=== PATIENT | male | born 1955 | race Caucasian/White ===

== ENCOUNTER 2025-09-02 20:32 | Observation (INO) ==
[2025-09-02] MEDS: KETOROLAC TROMETHAMINE 15 MG/ML VIAL IV STA (21:12)
[2025-09-02] MEDS: SODIUM CHLORIDE 0.9% 1,000 ML IV STA (21:12)
--- NOTE | 2025-09-02 21:20 | Emergency Department Note ---
ED Visit Note I was consulted by the Advanced Practice Provider, KARIME Becker. I performed a substantive portion of the visit. This includes aspects of: History: Patient is a 70-year-old male presenting with left sided abdominal pain. Patient reports he developed pain in his left lower quadrant that wraps around into his left flank and left low back starting 4 days ago. Denies any nausea, vomiting or diarrhea. He does report poor oral intake. MDM: Laboratory workup in the emergency department showed slight leukocytosis (WBC 10.94) with neutrophil predominant; stable electrolyte; ZOILA (Cr 1.66); normal lipase; normal AST/ALT. UA negative for infection, but noted to have significant amounts of blood. CT abdomen/pelvis with IV contrast showed mild to moderate left-sided hydronephrosis and hydroureter due to a 6 mm calculus at the left UVJ. Patient given IV Toradol, Zofran and fluids. Notable ZOILA and 6 mm stone, so will discuss case with hospitalist service for admission. .
[2025-09-02 21:32] LABS: Hematocrit (blood only) 49.4 % (42.0-52.0); Hemoglobin 17.0 g/dL (14.0-18.0); Immature Granulocytes # (auto) 0.02 K/uL (0.01-0.20); Immature Granulocytes % (auto) 0.2 %; Mean Corpuscular Hemoglobin 31.1 pg (25.0-34.0); Mean Corpuscular Volume 90.5 fL (80.0-100.0); Platelet Count 221 K/uL (130-400); RDW Standard Deviation 39.8 fL (36.4-46.3); Red Blood Count 5.46 M/uL (4.70-6.10); White Blood Count 10.94 K/ul (4.8-10.8)
[2025-09-02 21:39] LABS: Alanine Aminotransferase 30.0 U/L (7-52); Albumin Globulin Ratio 1.2 (0.9-2); Albumin Level 4.1 gm/dl (3.4-5.0); Alkaline Phosphatase 83.0 U/L (34-104); Anion Gap 9.0 (3-11); Bilirubin,Total 0.8 mg/dl (0.2-1.0); Blood Urea Nitrogen 26.0 mg/dl (6-23); Calcium 9.1 mg/dl (8.6-10.3); Carbon Dioxide 29.0 mmol/L (21-32); Chloride 102.0 mmol/L (98-107); Creatinine Clr Calc Pharmacy 47.6 ml/min; Globulin 3.5 gm/dl (2.5-4.0); Glucose 116.0 mg/dl (70-99(Fasting)); Lipase 24.0 U/L (11-82); Potassium 4.2 mmol/L (3.5-5.1); Sodium 140.0 mmol/L (136-145); Total Protein 7.6 gm/dl (6.0-8.3)
[2025-09-02 21:42] LABS: Appearance Urine Clear (Clear); Bacteria Urine Automated None Seen (None Seen); Epithelial Cell Urine Auto 0-2 /hpf (0-2); Glucose Urine UA Negative (Negative); RBC Urine Automated >20 /hpf (0-2)
[2025-09-02] MEDS: ONDANSETRON INJ 2 MG/ML 2 ML VIAL IV STA (21:44)
[2025-09-02] MEDS: OPTIRAY 320 100ml IV ONE (21:50)
--- NOTE | 2025-09-02 22:30 | Emergency Department Note ---
Impression & Plan ZOILA (acute kidney injury), Calculus of ureterovesical junction (UVJ), Hydronephrosis ED Provider Note CHIEF COMPLAINT: Left sided pain HISTORY OF PRESENTING ILLNESS: Patient is a 7-year-old male who presents to the emergency department today for complaints of left-sided abdominal pain. He reports pain at the left lower quadrant that wraps around to the lumbar and flank area of the back. Reports an onset of 4 days ago without any improvement in the pain or discomfort. He denies any nausea, vomiting, diarrhea. He does report a poor appetite over the past 4 days. He did have a prostate biopsy done 2 weeks ago but feels he did recover from this procedure well. Does report urinary complaints such as urgency, frequency but denies burning on urination. He denies any numbness or tingling, lightheadedness, dizziness, syncope, falls, trauma, injury, blurred vision. Patient denies chest pain, sob, breathing difficulties, abdominal pain, headache, fevers/chills, hematuria. REVIEW OF SYSTEMS: See HPI for pertinent positives and pertinent negatives. ALLERGIES: See below MEDICATIONS: See below PAST MEDICAL HISTORY: See below PHYSICAL EXAM: VITALS: Vitals are noted on the nurse's note and reviewed by myself. GENERAL: Non toxic, in no acute distress, non-diaphoretic. SKIN: Capillary refill <2 sec. EYES: PERRLA. EOMI. Conjunctivae without injection, sclerae without icterus. MOUTH: Mucous membranes moist. Uvula midline. Airway patent. NECK: Supple without nuchal rigidity. HEART: Regular rate and rhythm without murmurs gallops or rubs. LUNGS: Clear to auscultation bilaterally without wheezes, rales or rhonchi. No retractions or accessory muscle use. ABDOMEN: Positive bowel sounds x 4. Normal tympanic percussion. Soft, nontender to palpation. No masses or hepatosplenomegaly. Mahajan sign negative. Left-sided CVA tenderness. No guarding, rigidity, or rebound tenderness. No focal RLQ or LLQ tenderness. MUSCULOSKELETAL: Range of motion intact. No gross musculoskeletal defects. NEURO: Sensation intact. Patient was alert and oriented. No focal neurological deficits. DIFFERENTIAL DIAGNOSIS: Differential diagnosis includes appendicitis, diverticulitis, constipation, gastroenteritis, bowel obstruction, cholecystitis, appendicitis, inflammatory bowel disease, renal colic, PUD, biliary pathology, pancreatitis, mesenteric ischemia, aortic pathology, infection, genitourinary, UTI, perforated viscus, among others. ED COURSE AND MEDICAL DECISION MAKING: HISTORY FROM INDEPENDENT HISTORIAN: History was provided by the patient and who is at bedside and secondary historian. MONITOR: Continuous electronic device monitor: Order was placed for continuous electronic device monitor. Patient was placed on the electronic device monitor and continuous pulse ox. Patient was noted to be in normal sinus rhythm at an initial rate of 66 bpm per my interpretation. INTERPRETATION OF LABS: I interpreted the labs with full lab results as below in the lab section of this note. Laboratory results pertinent to the emergent complaint are discussed in the MDM section below. The patient was advised to follow up with their PCP and/or specialist(s) for further outpatient monitoring and management of any abnormal results. INTERPRETATION OF IMAGING: Imaging studies were interpreted by myself and read by radiology as per the imaging section of this note. The patient was advised to follow up with their PCP and/or specialist(s) for further outpatient management of any non-emergent abnormal findings. CHRONIC MEDICAL/SOCIAL CONDITIONS AFFECTING CARE: No social concerns were identified as barriers to patients care. EXTERNAL RECORDS REVIEWED: Primary care visit from 06/09/2025 related to low back pain. ESCALATION OF CARE CONSIDERED: I considered admission on this patient due to ZOILA and hydronephrosis due to renal calculi. CONSULTATIONS: I had a meaningful discussion about this patient with Dr. Espinoza who agrees with my assessment and the treatment plan. SUMMARY: I examined the patient for complaints of left lower quadrant pain that radiates to the lumbar and flank region. A physical exam and history were performed. Nursing notes, EMR, and medication list were personally reviewed. Abdominal exam without peritoneal signs. No evidence of acute abdomen at this time. Patient is well-appearing and hemodynamically stable. Given workup low suspicion for acute intra-abdominal process. CT of the abdomen and pelvis showed mild to moderate left sided hydronephrosis and hydroureter down to a 6 mm calculus at the left UVJ. CBC showed a mild leukocytosis with a white blood cell count of 10.94. No anemia or thrombocytopenia. CMP did show a creatinine of 1.66 and a BUN of 26. No other emergent findings on CMP. Lipase was 24. Urinalysis did show an elevated specific gravity, urine protein, urine ketones, +3 urine blood, white blood cells, hyaline cast. Patient was given 1 L of normal saline, Toradol 10 mg, Zofran 4 mg with improvement in pain and nausea. With the patient's ZOILA and CT findings I feel the patient will benefit from admission to the hospital. Patient accepted by Dr. Brandon. DIAGNOSIS: ZOILA, calculus UVJ, hydronephrosis TREATMENT PLAN/DISCHARGE INSTRUCTIONS: Admit to hospitalist services. The chart was completed utilizing [employer] Speech voice recognition software.Grammatical errors, random word insertions, pronoun errors, and incomplete sentences are an occasional consequence of this system due to software limitations, ambient noise, and hardware issues.Any formal questions or concerns about the content, text, or information contained within the body of this dictation should be directly addressed to the physician for clarification. 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 Ongoing surveillance with MRI Hypertension Hyperlipidemia Prediabetes GERD with esophagitis Medical History Elevated PSA Skin cancer Tinnitus, bilateral Sensorineural hearing loss of combined types, bilateral Cataract Barretts esophagus HX "pre-bryant's" - LAST YR CHECKED AND "NO EVIDENCE OF" Mitral valve prolapse Surgical History Hx of resection of meningioma (~2017) Followed by Dr. Amin [facility] [place], [place] History of left cataract surgery History of cataract surgery RT History of eye surgery RIGHT, RETINA 2019 History of endoscopy MULTIPLE History of craniotomy 2018 to remove benign mengioma. follows with Dr Amin ([facility] brain and spine) History of colonoscopy 05/25 repeat 5 yrs History of esophagogastroduodenoscopy (EGD) 04/2020 Family History Father Prostate cancer Myocardial infarction Mother Crohn's disease Other No family history of adverse response to anesthesia Denies family history of Ovarian cancer Breast cancer Colorectal cancer Social History Smoking Status: Former smoker Tobacco Type: Pipe and Cigars Age Started Using Tobacco: 20; Cigarettes Per Day: smoked in 20s; Second Hand Exposure: Yes; Do You Dip or Chew Tobacco: No; Tobacco Cessation Education Requested by Patient: No Hx Alcohol Use: Yes Alcohol type: wine and hard liquor Alcohol Intake Frequency: 4 or More x per/Week Hx Substance Use: No Preferred Language: Uzbek Communication Ability: Effective Visual Impairment: Limited Hearing Ability: Use of Hearing Aid Clinical Nursing Intern Required: No Beliefs That Will Affect Care: None marital status: Current Living Situation: Spouse current occupational status: retired How many Children do You have: 3 How many Children do You have Comment: 2 girl 1 boy Other Information That Helps Us Care for You: No Feels Safe at Home: Yes Safety Concerns: Feels Safe At This Time Childhood Exposure to Second-Hand Smoke: No Diet: regular caffeine: Yes (coffee in morning ) during the past year weight has: remained stable Dental Care, Regularly: Yes Physical Activity Frequency: 3-4 Times per Week Physical Activity Frequency Comment: 60,000-70,000 steps a week Seatbelt Use: always Sunscreen Use: Yes (sometimes) Assistive Devices: Glasses Allergies Allergies Allergy/AdvReac Type Severity Reaction Status Date / Time bee venom protein (honey bee) Allergy Unknown "WENT Verified 06/13/25 09:50 BLIND TEMPORARILY" No Known Drug Allergies Allergy Verified 06/13/25 09:50 seasonal allergies Allergy Uncoded 06/13/25 09:50 Home Meds Home Medications Medication Instructions Recorded Confirmed sildenafil 100 mg tablet 100 mg PO UD PRN sexual activity 10/30/20 09/03/25 Previous Rx's Medication Instructions Recorded lisinopril 40 mg tablet 40 mg PO HS #90 tabs 03/24/25 baclofen 10 mg tablet 10 mg PO TID PRN muscle spasm #30 06/09/25 tabs atorvastatin 20 mg tablet 20 mg PO HS #90 tabs 07/06/25 omeprazole 40 mg capsule,delayed 40 mg PO QAM #90 caps 07/06/25 release Results & Data (ED) Vital Signs Vital Signs - 24 hr 09/02/25 20:34 09/02/25 21:08 09/02/25 21:13 Temperature 36.6 C Temperature Source Temporal Artery Scan Pulse Rate 68 62 Pulse Rate [Right Finger] 66 Pulse Rate from SpO2 Sensor Pulse Rhythm Regular Pulse Rhythm [Right Finger] Regular Pulse Strength Normal Pulse Strength [Right Finger] Normal Respiratory Rate 18 17 Respiratory Effort / Characteristics Non-Labored Spontaneous Non-Labored Respiratory Depth Normal Normal Respiratory Pattern Regular Regular Blood Pressure 188/114 H Blood Pressure [Right Arm] 180/104 H Blood Pressure Mean 138 Blood Pressure Mean [Right Arm] 129 Blood Pressure Position Sitting Blood Pressure Position [Right Arm] Lying Pulse Oximetry 98 97 Oxygen Delivery Method Room Air Room Air Sepsis Recent Fever Within 48 Hours No Sepsis New/Unexplained Change in Mental Status N/A Sepsis Action Taken by Nursing No Action Required 09/02/25 21:13 09/02/25 22:00 09/02/25 22:50 Temperature Temperature Source Pulse Rate 71 71 Pulse Rate [Right Finger] Pulse Rate from SpO2 Sensor Pulse Rhythm Pulse Rhythm [Right Finger] Pulse Strength Pulse Strength [Right Finger] Respiratory Rate 13 16 Respiratory Effort / Characteristics Respiratory Depth Respiratory Pattern Blood Pressure 154/84 H Blood Pressure [Right Arm] Blood Pressure Mean 118 Blood Pressure Mean [Right Arm] Blood Pressure Position Blood Pressure Position [Right Arm] Pulse Oximetry 97 98 95 Oxygen Delivery Method Room Air Room Air Room Air Sepsis Recent Fever Within 48 Hours Sepsis New/Unexplained Change in Mental Status Sepsis Action Taken by Nursing 09/02/25 22:50 09/02/25 22:50 09/02/25 22:50 Temperature Temperature Source Pulse Rate Pulse Rate [Right Finger] Pulse Rate from SpO2 Sensor Pulse Rhythm Pulse Rhythm [Right Finger] Pulse Strength Pulse Strength [Right Finger] Respiratory Rate Respiratory Effort / Characteristics Respiratory Depth Respiratory Pattern Blood Pressure 154/84 H 154/84 H 154/84 H Blood Pressure [Right Arm] Blood Pressure Mean 118 118 118 Blood Pressure Mean [Right Arm] Blood Pressure Position Blood Pressure Position [Right Arm] Pulse Oximetry Oxygen Delivery Method Sepsis Recent Fever Within 48 Hours Sepsis New/Unexplained Change in Mental Status Sepsis Action Taken by Nursing 09/02/25 22:50 09/02/25 22:51 09/02/25 23:00 Temperature Temperature Source Pulse Rate 71 Pulse Rate [Right Finger] 72 Pulse Rate from SpO2 Sensor 71 Pulse Rhythm Pulse Rhythm [Right Finger] Regular Pulse Strength Pulse Strength [Right Finger] Respiratory Rate 17 16 Respiratory Effort / Characteristics Non-Labored Respiratory Depth Normal Respiratory Pattern Blood Pressure 154/84 H Blood Pressure [Right Arm] 154/84 H Blood Pressure Mean 118 Blood Pressure Mean [Right Arm] 107 Blood Pressure Position Blood Pressure Position [Right Arm] Pulse Oximetry 95 96 Oxygen Delivery Method Room Air Sepsis Recent Fever Within 48 Hours Sepsis New/Unexplained Change in Mental Status Sepsis Action Taken by Nursing 09/02/25 23:00 09/02/25 23:30 09/03/25 00:00 Temperature Temperature Source Pulse Rate 71 71 71 Pulse Rate [Right Finger] Pulse Rate from SpO2 Sensor 70 71 71 Pulse Rhythm Pulse Rhythm [Right Finger] Pulse Strength Pulse Strength [Right Finger] Respiratory Rate 17 17 20 Respiratory Effort / Characteristics Respiratory Depth Respiratory Pattern Blood Pressure Blood Pressure [Right Arm] Blood Pressure Mean Blood Pressure Mean [Right Arm] Blood Pressure Position Blood Pressure Position [Right Arm] Pulse Oximetry 97 95 91 Oxygen Delivery Method Sepsis Recent Fever Within 48 Hours Sepsis New/Unexplained Change in Mental Status Sepsis Action Taken by Nursing 09/03/25 00:30 09/03/25 01:00 09/03/25 01:00 Temperature Temperature Source Pulse Rate 85 77 Pulse Rate [Right Finger] 72 Pulse Rate from SpO2 Sensor 82 75 Pulse Rhythm Pulse Rhythm [Right Finger] Regular Pulse Strength Pulse Strength [Right Finger] Respiratory Rate 16 16 16 Respiratory Effort / Characteristics Non-Labored Respiratory Depth Normal Respiratory Pattern Blood Pressure Blood Pressure [Right Arm] 154/84 H Blood Pressure Mean Blood Pressure Mean [Right Arm] 107 Blood Pressure Position Blood Pressure Position [Right Arm] Pulse Oximetry 97 95 96 Oxygen Delivery Method Room Air Sepsis Recent Fever Within 48 Hours Sepsis New/Unexplained Change in Mental Status Sepsis Action Taken by Nursing 09/03/25 01:12 09/03/25 01:30 Temperature Temperature Source Pulse Rate 74 71 Pulse Rate [Right Finger] Pulse Rate from SpO2 Sensor 71 Pulse Rhythm Pulse Rhythm [Right Finger] Pulse Strength Pulse Strength [Right Finger] Respiratory Rate 15 Respiratory Effort / Characteristics Respiratory Depth Respiratory Pattern Blood Pressure Blood Pressure [Right Arm] Blood Pressure Mean Blood Pressure Mean [Right Arm] Blood Pressure Position Blood Pressure Position [Right Arm] Pulse Oximetry 96 Oxygen Delivery Method Sepsis Recent Fever Within 48 Hours Sepsis New/Unexplained Change in Mental Status Sepsis Action Taken by Nursing Laboratory Data 09/03/25 06:09 09/03/25 06:09 Lab Results 09/02/25 Range/Units 20:52 WBC 10.94 H (4.8-10.8) K/ul RBC 5.46 (4.70-6.10) M/uL Hgb 17.0 (14.0-18.0) g/dL Hct 49.4 (42.0-52.0) % MCV 90.5 (80.0-100.0) fL MCH 31.1 (25.0-34.0) pg MCHC 34.4 (32.0-36.0) g/dL RDW Std Deviation 39.8 (36.4-46.3) fL RDW Coeff of Pk 12.0 (11.5-14.5) % Plt Count 221 (130-400) K/uL MPV 10.0 (9.4-12.4) fL Immature Gran % (Auto) 0.2 % Neut % (Auto) 72.0 % Lymph % (Auto) 14.4 % [place] % (Auto) 11.1 % Eos % (Auto) 1.8 % Baso % (Auto) 0.5 % Neut # (Auto) 7.87 H (1.40-6.50) K/uL Lymph # (Auto) 1.58 (1.20-3.40) K/uL [place] # (Auto) 1.21 H (0.11-0.59) K/uL Eos # (Auto) 0.20 (0.00-0.50) K/uL Baso # (Auto) 0.06 (0.00-0.20) K/uL Immature Gran # (Auto) 0.02 (0.01-0.20) K/uL Sodium 140 (136-145) mmol/L Potassium 4.2 (3.5-5.1) mmol/L Chloride 102 (98-107) mmol/L Carbon Dioxide 29 (21-32) mmol/L Anion Gap 9 (3-11) BUN 26 H (6-23) mg/dl Creatinine 1.66 H (0.6-1.4) mg/dl Est Cr Clr Drug Dosing 47.6 ml/min eGFR 44.07 BUN/Creatinine Ratio 15.7 (10-20) Glucose 116 H (70-99(Fasting)) mg/dl Calcium 9.1 (8.6-10.3) mg/dl Total Bilirubin 0.8 (0.2-1.0) mg/dl AST 20 (13-39) U/L ALT 30 (7-52) U/L Alkaline Phosphatase 83 (34-104) U/L Total Protein 7.6 (6.0-8.3) gm/dl Albumin 4.1 (3.4-5.0) gm/dl Globulin 3.5 (2.5-4.0) gm/dl Albumin/Globulin Ratio 1.2 (0.9-2) Lipase 24 (11-82) U/L Urine Color Dark Yellow Urine Appearance Clear (Clear) Urine pH 5.0 (4.5-7.5) Ur Specific [place] 1.034 H (1.000-1.030) Urine Protein 1+ H (Negative) Urine Glucose (UA) Negative (Negative) Urine Ketones Trace H (Negative) Urine Blood 3+ H (Negative) Urine Nitrite Negative (Negative) Urine Bilirubin Negative (Negative) Urine Urobilinogen Negative (Negative) Ur Leukocyte Esterase Negative (Negative) Urine WBC (Auto) 6-10 H (0-5) /hpf Urine RBC (Auto) >20 H (0-2) /hpf U Hyaline Cast (Auto) 11-20 H (0-2) /lpf U Epithel Cells (Auto) 0-2 (0-2) /hpf Urine Bacteria (Auto) None Seen (None Seen) Urine Comment Administered Medications Acetaminophen (Acetaminophen 500 Mg Tab) 1,000 mg PO Q8H PRN PRN Reason: Mild Pain (Scale 1, 2, 3) Stop: 10/03/25 02:24 Last Admin: 09/03/25 15:27 Dose: 1,000 mg Documented By: GRAHAM Lactated Ringer's (Lr) 1,000 mls @ 100 mls/hr IV .Q10H [facility] Stop: 09/06/25 02:51 Last Admin: 09/03/25 04:28 Dose: 100 mls/hr Documented By: DCS Morphine Sulfate (Morphine Sulfate 2 Mg/Ml Carp) 2 mg IV Q3H PRN PRN Reason: Severe Pain (Scale 7, 8, 9,10) Stop: 09/17/25 02:24 Last Admin: 09/03/25 02:39 Dose: 2 mg Documented By: NAW Pantoprazole Sodium (Pantoprazole 40 Mg Tab) [facility] Stop: 10/03/25 08:59 Last Admin: 09/03/25 11:36 Dose: 40 mg Documented By: hill Tamsulosin HCl (Tamsulosin Hcl 0.4 Mg Cap) 0.4 mg PO QAM KALYANI Stop: 10/03/25 08:59 Last Admin: 09/03/25 11:36 Dose: 0.4 mg Documented By: hill Discontinued Medications Diatrizoate Meglumine (Diatrizoate Meglumine 30% 100ml Vial) 20 ml INSTIL UD ONE Stop: 09/03/25 09:10 Last Admin: 09/03/25 09:12 Dose: 10 ml Documented By: [id number] Sodium Chloride (Nss) 1,000 mls @ 999 mls/hr IV .Q1H1M STA Stop: 09/02/25 22:04 Last Infusion: 09/02/25 22:13 Dose: Infused Documented By: Admin: 09/02/25 21:12 Dose: 999 mls/hr Documented By: PAM Cefazolin Sodium (Ancef 2000mg) 2,000 mg in 15 mls @ 3.75 mls/min IV PREOP ONE; Protocol Stop: 09/03/25 08:15 Last Admin: 09/03/25 08:48 Dose: 3.75 mls/min Documented By: DOUGLAS Ioversol (Optiray 320 100ml) 90 ml IV ONCE ONE Stop: 09/02/25 21:51 Last Admin: 09/02/25 21:50 Dose: 90 ml Documented By: RUSH Ketorolac Tromethamine (Ketorolac Tromethamine 15 Mg/Ml Vial) 10 mg IV NOW STA Stop: 09/02/25 21:05 Last Admin: 09/02/25 21:12 Dose: 10 mg Documented By: PAM Ondansetron HCl (Ondansetron Inj 2 Mg/Ml 2 Ml Vial) 4 mg IV NOW STA Stop: 09/02/25 21:43 Last Admin: 09/02/25 21:44 Dose: 4 mg Documented By: PAM Imaging Data Radiologist's Impression: Abdomen/Pelvis CT 09/02/25 21:05 Exam(s): CT ABDOMEN + PELVIS With Contrast IV Amt: 90 ml optiray 320 EXAM: CT Abdomen and Pelvis With Intravenous Contrast CLINICAL HISTORY: Reason for exam: abd pain. TECHNIQUE: Axial computed tomography images of the abdomen and pelvis with intravenous contrast. CTDI is 25.2 mGy and DLP is 1229.58 mGy-cm. Automated exposure control was utilized for the study. A dose lowering technique was utilized adhering to the principles of ALARA. CONTRAST: Patient received 90 ml optiray 320 of IV contrast COMPARISON: No relevant prior studies available. FINDINGS: Lung bases: Unremarkable. No mass. No consolidation. ABDOMEN: Liver: Unremarkable. No mass. Gallbladder and bile ducts: Unremarkable. No calcified stones. No ductal dilation. Pancreas: Unremarkable. No mass. No ductal dilation. Spleen: Unremarkable. No splenomegaly. Adrenals: Unremarkable. No mass. Kidneys and ureters: [id number] left-sided hydronephrosis and hydroureter down to a 6 mm calculus at the left ureterovesicular junction. Delayed nephrogram involving the left kidney. Stomach and bowel: See below. PELVIS: Appendix: Bowel loops are nondilated. The appendix is normal. There is diverticulosis of the left and sigmoid colon without evidence of acute diverticulitis. Bladder: Unremarkable. No mass. Reproductive: Unremarkable as visualized. ABDOMEN and PELVIS: Intraperitoneal space: Unremarkable. No free air. No significant fluid collection. Bones/joints: Mild degenerative changes in the spine. No acute fracture or subluxation is seen. Soft tissues: Unremarkable. Vasculature: Unremarkable. No abdominal aortic aneurysm. Lymph nodes: Unremarkable. No enlarged lymph nodes. IMPRESSION: 1. Bowel loops are nondilated. The appendix is normal. There is diverticulosis of the left and sigmoid colon without evidence of acute diverticulitis. 2. [id number] left-sided hydronephrosis and hydroureter down to a 6 mm calculus at the left ureterovesicular junction. Electronically signed by: Isaias Middleton MD 09/03/25 00:29 AM Discharge Plan Visit Data Chief Complaint: Abdominal Pain Stated Complaint: ABD PAIN, BACK PAIN ED Provider: Martha Espinoza ED Midlevel Provider: Lexy Willis Discharge Problem: ZOILA (acute kidney injury), Calculus of ureterovesical junction (UVJ), Hydronephrosis Patient Disposition: Admitted As Inpatient Condition: Good Discharge Instructions Interventions: ED Discharge Assessment Last Done: 09/03/25 02:34 Discharge Problem: Hydronephrosis Qualifiers: Hydronephrosis type: unspecified Qualified Code(s): N13.30 - Unspecified hydronephrosis
--- NOTE | 2025-09-03 00:30 | CT Scan Report ---
Exam(s): CT ABDOMEN + PELVIS With Contrast IV Amt: 90 ml optiray 320 EXAM: CT Abdomen and Pelvis With Intravenous Contrast CLINICAL HISTORY: Reason for exam: abd pain. TECHNIQUE: Axial computed tomography images of the abdomen and pelvis with intravenous contrast. CTDI is 25.2 mGy and DLP is 1229.58 mGy-cm. Automated exposure control was utilized for the study. A dose lowering technique was utilized adhering to the principles of ALARA. CONTRAST: Patient received 90 ml optiray 320 of IV contrast COMPARISON: No relevant prior studies available. FINDINGS: Lung bases: Unremarkable. No mass. No consolidation. ABDOMEN: Liver: Unremarkable. No mass. Gallbladder and bile ducts: Unremarkable. No calcified stones. No ductal dilation. Pancreas: Unremarkable. No mass. No ductal dilation. Spleen: Unremarkable. No splenomegaly. Adrenals: Unremarkable. No mass. Kidneys and ureters: [id number] left-sided hydronephrosis and hydroureter down to a 6 mm calculus at the left ureterovesicular junction. Delayed nephrogram involving the left kidney. Stomach and bowel: See below. PELVIS: Appendix: Bowel loops are nondilated. The appendix is normal. There is diverticulosis of the left and sigmoid colon without evidence of acute diverticulitis. Bladder: Unremarkable. No mass. Reproductive: Unremarkable as visualized. ABDOMEN and PELVIS: Intraperitoneal space: Unremarkable. No free air. No significant fluid collection. Bones/joints: Mild degenerative changes in the spine. No acute fracture or subluxation is seen. Soft tissues: Unremarkable. Vasculature: Unremarkable. No abdominal aortic aneurysm. Lymph nodes: Unremarkable. No enlarged lymph nodes. IMPRESSION: 1. Bowel loops are nondilated. The appendix is normal. There is diverticulosis of the left and sigmoid colon without evidence of acute diverticulitis. 2. [id number] left-sided hydronephrosis and hydroureter down to a 6 mm calculus at the left ureterovesicular junction. Electronically signed by: Isaias Middleton MD 09/03/25 00:29 AM
--- NOTE | 2025-09-03 01:35 | History & Physical Report ---
Date of Service September 03, 2025 Assessment & Plan (1) ZOILA (acute kidney injury): (2) Hydronephrosis: (3) Calculus of ureterovesical junction (UVJ): Plan 70-year-old male PMHx prostate cancer, benign neoplasm of cerebral meninges (2018, atypical meningioma), HTN, HLD, prediabetes, MVP, GERD and Bryant's esophagus presenting for abdominal pain radiating to the back starting 4 days [employer]. Evaluation reveals mild leukocytosis 10.94, but with UA not suspicious for infection. Creatinine elevated at 1.66. CTAP does reveal left-sided hydronephrosis with hydroureter and presence of a 6 mm calculus. Admission for ZOILA and hydronephrosis secondary to ureteral calculus. #ZOILA/Hydronephrosis/Calculus of UVJ In setting of L ureteral calculus. No prior history of renal calculi. Pain overall managed at this time, no fevers, no LUTS. Received 1L NSS in ED. - Cr 1.66, BUN 26 - BMP am - UA without infection - Hold nephrotoxic agents - Urine strainer - IVF with LR @ 100 mL/hr - Zofran prn N/V - Acetaminophen prn fever/pain, morphine prn severe pain - Hold lisinopril at time of admission - Deferred abx at time of admission - mild leukocytosis but without UTI, no fevers, no infection identified on imaging -- add IV abx if fever develops or worsening leukocytosis - Urology consulted -- appreciate input + recs #Prostate CA- Dx 08/21/2025, following with active surveillance and follows with Urology, most recent visit 08/29/2025 - continue to monitor in outpatient setting #HTN- Lisinopril - Hold at admission in presence of ZOILA #GERD- Omeprazole - continue #HLD- Atorvastatin - continue Dispo: Admit, med/sx VTE Prophylaxis: SCDs This document was dictated utilizing [employer]. Please excuse any grammatical errors that may be secondary to use of this software. Admission and Anticipated Discharge Date Admission Date: 09/03/2025 History of Present Illness Chief Complaint: Abd pain Primary Care Provider: Tye Isbell, 70-year-old male PMHx prostate cancer, benign neoplasm of cerebral meninges (2018, atypical meningioma), HTN, HLD, prediabetes, MVP, GERD and Bryant's esophagus presenting for abdominal pain radiating to the back starting 4 days [employer]. Patient reports that on Thursday he had a "episode" of the pain that he had to lay down to alleviate. He states after laying down he felt better and was able to tolerate his dinner. Ever since that time, he has had on and off left-sided flank pain that is in his lower left abdomen and radiates to his back. Occasionally getting "twinges" in his groin region, but these have been ongoing since his prostate biopsy 2 weeks prior. He describes the pain as a steady twinge with occasional worsening at times. At its worst, it was a 7-8 out of 10 on the pain scale, currently 4 out of 10 the pain scale. He states that he did variance feeling more cold the day of arrival, but no fevers. He was having nausea and dry heaving once arriving to the ED, none at present. No LUTS. Had this happen once before in the summer where he had a low back pain that resolved on its own, they said it was similar in nature but did not have an evaluation. Denies chest pain, SOB, palpitations, diarrhea/constipation, URI symptoms at present, numbness/tingling, weakness, syncope or falls. ED evaluation revealed CBC with leukocytosis 10.94, stable H&H; CMP BUN 26, creatinine 1.66, glucose 116; lipase WNL; UA with blood/WBC, no bacteria; CTAP bowel loops nondilated, no diverticulitis, with mild to moderate L sided hydronephrosis and hydroureter down to 6 mm calculus in left ureterovesicular junction.; Provided with 1L NSS, Zofran 4 mg IV, ketorolac 10 mg IV in ED. Please see Dr. Davis's attestation for adjustments/additions to treatment plan. Allergies Allergy/AdvReac Type Severity Reaction Status Date / Time bee venom protein (honey bee) Allergy Unknown "WENT Verified 06/13/25 09:50 BLIND TEMPORARILY" No Known Drug Allergies Allergy Verified 06/13/25 09:50 seasonal allergies Allergy Uncoded 06/13/25 09:50 Home Medications Medication Instructions Recorded Confirmed Type sildenafil 100 mg tablet 100 mg PO UD PRN sexual activity 10/30/20 09/03/25 History lisinopril 40 mg tablet 40 mg PO HS #90 tabs 03/24/25 09/03/25 Rx baclofen 10 mg tablet 10 mg PO TID PRN muscle spasm #30 06/09/25 06/13/25 Rx tabs atorvastatin 20 mg tablet 20 mg PO HS #90 tabs 07/06/25 09/03/25 Rx omeprazole 40 mg capsule,delayed 40 mg PO QAM #90 caps 07/06/25 09/03/25 Rx release Past Med/Surg History Problem List (Updated 09/03/25 @ 16:04 by Dagoberto Delgado PA-C) ZOILA (acute kidney injury) (Acute) Hydronephrosis (Acute) Calculus of ureterovesical junction (UVJ) (Acute) Prostate cancer Non-healing skin lesion Impingement of right shoulder Tendinopathy of right biceps tendon Tear of right rotator cuff Benign neoplasm of cerebral meninges 2018 right side craniotomy, followed by [facility] neurosurgery, atypical meningioma. Ongoing surveillance with MRI Hypertension Hyperlipidemia Prediabetes GERD with esophagitis Medical History Elevated PSA Skin cancer Tinnitus, bilateral Sensorineural hearing loss of combined types, bilateral Cataract Barretts esophagus HX "pre-bryant's" - LAST YR CHECKED AND "NO EVIDENCE OF" Mitral valve prolapse Surgical History Hx of resection of meningioma (~2017) Followed by Dr. Amin [facility] [place], [place] History of left cataract surgery History of cataract surgery RT History of eye surgery RIGHT, RETINA 2019 History of endoscopy MULTIPLE History of craniotomy 2018 to remove benign mengioma. follows with Dr Amin ([facility] brain [facility] spine) History of colonoscopy 05/25 repeat 5 yrs History of esophagogastroduodenoscopy (EGD) 04/2020 Family History Father Prostate cancer Myocardial infarction Mother Crohn's disease Other No family history of adverse response to anesthesia Denies family history of Ovarian cancer Breast cancer Colorectal cancer Social History Smoking Status: Former smoker Tobacco Type: Pipe and Cigars Age Started Using Tobacco: 20; Cigarettes Per Day: smoked in 20s; Second Hand Exposure: Yes; Do You Dip or Chew Tobacco: No; Tobacco Cessation Education Requested by Patient: No Hx Alcohol Use: Yes Alcohol type: wine and hard liquor Alcohol Intake Frequency: 4 or More x per/Week Hx Substance Use: No Preferred Language: Stateless Communication Ability: Effective Visual Impairment: Limited Hearing Ability: Use of Hearing Aid Traveling Representative Required: No Beliefs That Will Affect Care: None marital status: Current Living Situation: Spouse current occupational status: retired How many Children do You have: 3 How many Children do You have Comment: 2 girl 1 boy Other Information That Helps Us Care for You: No Feels Safe at Home: Yes Safety Concerns: Feels Safe At This Time Childhood Exposure to Second-Hand Smoke: No Diet: regular caffeine: Yes (coffee in morning ) during the past year weight has: remained stable Dental Care, Regularly: Yes Physical Activity Frequency: 3-4 Times per Week Physical Activity Frequency Comment: 60,000-70,000 steps a week Seatbelt Use: always Sunscreen Use: Yes (sometimes) Assistive Devices: Glasses Review of Systems Review of Systems: All systems reviewed & are unremarkable except as noted in Subjective Physical Exam Physical Exam: General: No acute distress Skin: Warm and dry Head: Normocephalic, atraumatic Eyes: PERRL, conjunctivae clear, sclera non-icteric; wearing glasses ENT: External ear and ear canal without swelling; nose atraumatic; good dentition, tongue normal appearance, pharynx normal Neck: Supple, no LAD Cardio: RRR, no M/G/R, S1 and S2 normal Resp: No respiratory distress, Lungs CTA in all lobes bilaterally, no wheezes, rales, or rhonchi Abdomen: Soft, symmetric, nontender; No CVA tenderness; No masses or hepatosplenomegaly; Bowel sounds normoactive MSK: No deformities; pulses palpable and equal; no edema. Neuro: Awake, alert; Sensation intact bilaterally; CN grossly intact Psych: Appropriate mood and affect; good judgement and insight. BLAZE student present in room at time of admission. Results & Data Results & Data Vital Signs (Past 12 Hours) Vital Signs Temp Pulse Pulse Resp BP BP Pulse Ox 09/03/25 01:12 74 09/03/25 01:00 72 16 154/84 H 95 09/02/25 23:00 72 16 154/84 H 96 09/02/25 22:50 71 16 154/84 H 95 09/02/25 22:00 71 13 98 09/02/25 21:13 97 09/02/25 21:13 66 17 180/104 H 97 09/02/25 21:08 62 09/02/25 20:34 36.6 C 68 18 188/114 H 98 O2 Del Method 09/03/25 01:12 09/03/25 01:00 Room Air 09/02/25 23:00 Room Air 09/02/25 22:50 Room Air 09/02/25 22:00 Room Air 09/02/25 21:13 Room Air 09/02/25 21:13 Room Air 09/02/25 21:08 09/02/25 20:34 Room Air Laboratory Results 09/02/25 20:52 WBC 10.94 H RBC 5.46 Hgb 17.0 Hct 49.4 MCV 90.5 MCH 31.1 MCHC 34.4 RDW Std Deviation 39.8 RDW Coeff of Pk 12.0 Plt Count 221 MPV 10.0 Immature Gran % (Auto) 0.2 Neut % (Auto) 72.0 Lymph % (Auto) 14.4 [place] % (Auto) 11.1 Eos % (Auto) 1.8 Baso % (Auto) 0.5 Neut # (Auto) 7.87 H Lymph # (Auto) 1.58 [place] # (Auto) 1.21 H Eos # (Auto) 0.20 Baso # (Auto) 0.06 Immature Gran # (Auto) 0.02 Sodium 140 Potassium 4.2 Chloride 102 Carbon Dioxide 29 Anion Gap 9 BUN 26 H Creatinine 1.66 H Est Cr Clr Drug Dosing 47.6 eGFR 44.07 BUN/Creatinine Ratio 15.7 Glucose 116 H Calcium 9.1 Total Bilirubin 0.8 AST 20 ALT 30 Alkaline Phosphatase 83 Total Protein 7.6 Albumin 4.1 Globulin 3.5 Albumin/Globulin Ratio 1.2 Lipase 24 Urine Color Dark Yellow Urine Appearance Clear Urine pH 5.0 Ur Specific [place] 1.034 H Urine Protein 1+ H Urine Glucose (UA) Negative Urine Ketones Trace H Urine Blood 3+ H Urine Nitrite Negative Urine Bilirubin Negative Urine Urobilinogen Negative Ur Leukocyte Esterase Negative Urine WBC (Auto) 6-10 H Urine RBC (Auto) >20 H U Hyaline Cast (Auto) 11-20 H U Epithel Cells (Auto) 0-2 Urine Bacteria (Auto) None Seen Urine Comment Diagnostic Findings Abdomen/Pelvis CT 09/02/25 21:05 Exam(s): CT ABDOMEN + PELVIS With Contrast IV Amt: 90 ml optiray 320 EXAM: CT Abdomen and Pelvis With Intravenous Contrast CLINICAL HISTORY: Reason for exam: abd pain. TECHNIQUE: Axial computed tomography images of the abdomen and pelvis with intravenous contrast. CTDI is 25.2 mGy and DLP is 1229.58 mGy-cm. Automated exposure control was utilized for the study. A dose lowering technique was utilized adhering to the principles of ALARA. CONTRAST: Patient received 90 ml optiray 320 of IV contrast COMPARISON: No relevant prior studies available. FINDINGS: Lung bases: Unremarkable. No mass. No consolidation. ABDOMEN: Liver: Unremarkable. No mass. Gallbladder and bile ducts: Unremarkable. No calcified stones. No ductal dilation. Pancreas: Unremarkable. No mass. No ductal dilation. Spleen: Unremarkable. No splenomegaly. Adrenals: Unremarkable. No mass. Kidneys and ureters: [id number]-ks-oussdzbk left-sided hydronephrosis and hydroureter down to a 6 mm calculus at the left ureterovesicular junction. Delayed nephrogram involving the left kidney. Stomach and bowel: See below. PELVIS: Appendix: Bowel loops are nondilated. The appendix is normal. There is diverticulosis of the left and sigmoid colon without evidence of acute diverticulitis. Bladder: Unremarkable. No mass. Reproductive: Unremarkable as visualized. ABDOMEN and PELVIS: Intraperitoneal space: Unremarkable. No free air. No significant fluid collection. Bones/joints: Mild degenerative changes in the spine. No acute fracture or subluxation is seen. Soft tissues: Unremarkable. Vasculature: Unremarkable. No abdominal aortic aneurysm. Lymph nodes: Unremarkable. No enlarged lymph nodes. IMPRESSION: 1. Bowel loops are nondilated. The appendix is normal. There is diverticulosis of the left and sigmoid colon without evidence of acute diverticulitis. 2. Ehxd-dj-zxjelxal left-sided hydronephrosis and hydroureter down to a 6 mm calculus at the left ureterovesicular junction. Electronically signed by: Isaias Middleton MD 09/03/25 00:29 AM Medications Administered 1L NSS Zofran 4 mg IV Ketorolac 10 mg IV ECG Additional Comments: Full Supervising Physician Co-Signing Physician Notes Attending addendum: I have physically seen this patient, have supervised the MARQUIS's activities, and agree with the H&P unless as otherwise noted. Assessment and Plan: The patient is a 70-year-old with past medical history including prostate cancer, benign neoplasm of cerebral meninges/atypical meningioma, hypertension, hyperlipidemia, prediabetes, MVP, GERD, and Bryant's esophagus. He presents to the emergency department with back pain radiating to flank starting 4 days prior to arrival. CT scan abdomen pelvis showed left sided hydronephrosis and hydroureter, with left UVJ calculus 6 mm stone. 6 mm left UVJ stone/mild-moderate left hydroureteronephrosis- Follow urine culture sensitivity N.p.o. LR at 100 mL/h Zofran 4 mg IV every 6 hours as needed Acetaminophen 1 g IV every 8 hours needed for mild pain or fever Morphine 2 mg IV every 4 hours as needed for moderate to severe pain Tamsulosin 0.4 mg p.o. daily Consult urology Acute kidney injury- Creatinine 1.66, with baseline 1.14 Status post 1 L normal saline bolus in the ED Received Toradol 10 mg IV from the ED Hold further NSAIDs Hold lisinopril LR at 100 mL/h Recheck laboratories in the a.m. Remaining orders and notations as noted PG Care Time/CCT Total # of Minutes Spent Total Time Spent with Patient: Total time spent is greater than 50% in coordination of care (as documented) at patient's floor/unit and/or counseling patient: Coding Level of Care Code 24136 INT INP/OBS CARE 3/75MIN Diagnoses ZOILA (acute kidney injury) N17.9 Hydronephrosis N13.30 Hydronephrosis type: unspecified Calculus of ureterovesical junction (UVJ) N20.1 (2) Hydronephrosis Hydronephrosis type: unspecified Qualified Code(s): N13.30 - Unspecified hydronephrosis
[2025-09-03] MEDS ORDERED: MoRPHine SULFATE 2 MG/ML CARP IV PRN (02:25)
[2025-09-03] MEDS: MoRPHine SULFATE 2 MG/ML CARP IV PRN (02:39)
[2025-09-03] MEDS ORDERED: ONDANSETRON INJ 2 MG/ML 2 ML VIAL IV PRN ×2 (02:52→08:38)
[2025-09-03] MEDS ORDERED: POLYETHYLENE (MIRALAX) 17 GM PACK PO PRN (02:52)
[2025-09-03] MEDS ORDERED: MELATONIN 3 MG TAB PO PRN (02:52)
[2025-09-03] MEDS: LACTATED RINGER'S 1,000 ML IV SCH (04:28)
--- NOTE | 2025-09-03 04:48 | Urology Consultation ---
Date of Consultation September 03, 2025 Assessment & Plan (1) Calculus of ureterovesical junction (UVJ): The patient has been admitted on the hospitalist service. Urologic recommendations are as follows: Provide analgesics Provide antiemetics Hydrate the patient with intravenous fluids Strain all urine so any kidney stones that are passed can be analyzed appropriately Will initiate Flomax for expulsive therapy On CT scan the patient's kidney stone is 6 mm and is located at the ureterovesical junction. Will monitor the patient to see if he is able to pass this kidney stone but we will make him empirically n.p.o. and he will be reevaluated by our dayshift team on 09/03/2025 to determine if cystoscopic intervention is required Follow serial labs Additional recommendations to be forthcoming based on his clinical course as unfolds Supervising Physician Co-Signing Physician Notes Discussed patient with MARQUIS. Agree with plan. I saw the patient personally and reviewed his imaging and labs. He has an obst ructing stone with an ZOILA but otherwise stable. Patient denies passing the stone. Discussed options including medical expulsive therapy versus stent placement with possible stone treatment if amenable surgically. He would like to proceed with stent placement and possible removal of the stone. Risks and benefits discussed. Consent was obtained. Patient was marked. Ancef to the OR. The majority of the time spent with the patient with was myself and was greater than 50% of the overall clinical encounter. History of Present Illness Reason for Consultation: Nephrolithiasis Attending Physician: Jose Sepulveda MD History of Present Illness This is a 70-year-old male who presented to the emergency department secondary to left-sided flank pain. He says that the pain has been present for approximately 3 to 4 days. He denies any fevers, shakes, or chills. He denies any nausea or vomiting. Patient notes that he is urinating without dysuria or hematuria but notes his urine stream does not seem to be quite as strong as it used to be. He notes he has never had a history of kidney stones in the past. Since arrival to the hospital the patient has had labs and imaging which I dependently reviewed. A CT scan of the abdomen pelvis showed the patient had moderate left-sided hydronephrosis secondary to a 6 mm kidney stone at the left ureterovesical junction. Labs including CBC were white blood cell count was 10.9. Hemoglobin, hematocrit, platelet count were all normal. Chemistry profile showed sodium and potassium were normal. His BUN and creatinine were both slightly elevated at 26 and 1.6. (Creatinine typically runs within the normal range). Urinalysis had 6-10 white blood cells per high-power field but was otherwise not indicative of infection as it had no bacteria, leukocyte esterase, or nitrites. At the time of my interview the patient was resting comfortably in bed he was in no distress. Allergies Allergy/AdvReac Type Severity Reaction Status Date / Time bee venom protein (honey bee) Allergy Unknown "WENT Verified 06/13/25 09:50 BLIND TEMPORARILY" No Known Drug Allergies Allergy Verified 06/13/25 09:50 seasonal allergies Allergy Uncoded 06/13/25 09:50 Home Medications Medication Instructions Recorded Confirmed Type sildenafil 100 mg tablet 100 mg PO UD PRN sexual activity 10/30/20 09/03/25 History lisinopril 40 mg tablet 40 mg PO HS #90 tabs 03/24/25 09/03/25 Rx baclofen 10 mg tablet 10 mg PO TID PRN muscle spasm #30 06/09/25 06/13/25 Rx tabs atorvastatin 20 mg tablet 20 mg PO HS #90 tabs 07/06/25 09/03/25 Rx omeprazole 40 mg capsule,delayed 40 mg PO QAM #90 caps 07/06/25 09/03/25 Rx release Patient History Medical History Elevated PSA Skin cancer Tinnitus, bilateral Sensorineural hearing loss of combined types, bilateral Cataract Barretts esophagus HX "pre-bryant's" - LAST YR CHECKED AND "NO EVIDENCE OF" Mitral valve prolapse Surgical History Hx of resection of meningioma (~2017) [place] Amin [facility] [place] History of left cataract surgery History of cataract surgery RT History of eye surgery RIGHT, RETINA 2018 History of endoscopy MULTIPLE History of craniotomy 2018 to remove benign mengioma. follows with Dr Amin ([facility] brain and spine) History of colonoscopy 05/25 repeat 5 yrs History of esophagogastroduodenoscopy (EGD) 04/2020 Family History Father Prostate cancer Myocardial infarction Mother Crohn's disease Other No family history of adverse response to anesthesia Denies family history of Ovarian cancer Breast cancer Colorectal cancer Social History Smoking Status: Former smoker Tobacco Type: Pipe and Cigars Age Started Using Tobacco: 20; Cigarettes Per Day: smoked in 20s; Second Hand Exposure: Yes; Do You Dip or Chew Tobacco: No; Tobacco Cessation Education Requested by Patient: No Hx Alcohol Use: Yes Alcohol type: wine and hard liquor Alcohol Intake Frequ ency: 4 or More x per/Week Hx Substance Use: No Preferred Language: Lao Communication Ability: Effective Visual Impairment: Limited Hearing Ability: Use of Hearing Aid Government Service Executive Required: No Beliefs That Will Affect Care: None marital status: Current Living Situation: Spouse current occupational status: retired How many Children do You have: 3 How many Children do You have Comment: 2 girl 1 boy Other Information That Helps Us Care for You: No Feels Safe at Home: Yes Safety Concerns: Feels Safe At This Time Childhood Exposure to Second-Hand Smoke: No Diet: regular caffeine: Yes (coffee in morning ) during the past year weight has: remained stable Dental Care, Regularly: Yes Physical Activity Frequency: 3-4 Times per Week Physical Activity Frequency Comment: 60,000-70,000 steps a week Seatbelt Use: always Sunscreen Use: Yes (sometimes) Assistive Devices: Glasses Review of Systems Review of Systems: All systems reviewed & are unremarkable except as noted in HPI & below Physical Exam Constitutional: WD/WN, vitals as above Eyes: no conjunctival abnormality ENMT: Ears: no hearing impairment and no external ear abnormality Mouth: no oropharynx abnormality Neck: trachea midline Respiratory: normal respiratory effort; no respiratory distress and no labored breathing Cardiovascular: Rate/Rhythm: regular rate and regular rhythm Gastrointestinal (Abdomen): Soft and nontender to palpation Musculoskeletal: No calf tenderness Skin: no rashes Neurologic: moves all extremities Psychiatric: A+Ox3, euthymic affect Genitourinary: No CVA tenderness with percussion bilaterally at the time of my exam Results & Data Vital Signs (Past 12 Hours) Vital Signs Temp Pulse Pulse Resp BP BP Pulse Ox 09/03/25 02:53 37.2 C 75 16 172/91 H 93 09/03/25 02:34 71 16 161/92 H 96 11/30/25 01:12 74 09/03/25 01:00 72 16 154/84 H 95 09/02/25 23:00 72 16 154/84 H 96 09/02/25 22:50 71 16 154/84 H 95 09/02/25 22:00 71 13 98 09/02/25 21:13 97 09/02/25 21:13 66 17 180/104 H 97 09/02/25 21:08 62 09/02/25 20:34 36.6 C 68 18 188/114 H 98 O2 Del Method 09/03/25 02:53 Room Air 09/03/25 02:34 Room Air 09/03/25 01:12 09/03/25 01:00 Room Air 09/02/25 23:00 Room Air 09/02/25 22:50 Room Air 09/02/25 22:00 Room Air 09/02/25 21:13 Room Air 09/02/25 21:13 Room Air 09/02/25 21:08 09/02/25 20:34 Room Air PG Care Time/CCT Total # of Minutes Spent Total Time Spent with Patient: Total time spent is greater than 50% in coordination of care (as documented) at patient's floor/unit and/or counseling patient: Coding Level of Care Code 18483 INT INP/OBS CARE 3/75MIN Diagnoses Calculus of ureterovesical junction (UVJ) N20.1
[2025-09-03 07:01] LABS: Hematocrit (blood only) 42.9 % (42.0-52.0); Hemoglobin 14.8 g/dL (14.0-18.0); Mean Corpuscular Hemoglobin 31.2 pg (25.0-34.0); Mean Corpuscular Volume 90.3 fL (80.0-100.0); Platelet Count 182 K/uL (130-400); RDW Standard Deviation 39.8 fL (36.4-46.3); Red Blood Count 4.75 M/uL (4.70-6.10); White Blood Count 9.36 K/ul (4.8-10.8)
[2025-09-03 07:35] LABS: Anion Gap 7.0 (3-11); Blood Urea Nitrogen 27.0 mg/dl (6-23); Calcium 8.1 mg/dl (8.6-10.3); Carbon Dioxide 25.0 mmol/L (21-32); Chloride 107.0 mmol/L (98-107); Creatinine Clr Calc Pharmacy 39.0 ml/min; Glucose 115.0 mg/dl (70-99(Fasting)); Potassium 4.5 mmol/L (3.5-5.1); Sodium 139.0 mmol/L (136-145)
[2025-09-03] MEDS ORDERED: MIDAZOLAM HCL 1 MG/ML 2ML VIAL ONE (08:22)
[2025-09-03] MEDS ORDERED: ONDANSETRON INJ 2 MG/ML 2 ML VIAL ONE (08:25)
[2025-09-03] MEDS ORDERED: DEXAMETHASONE SOD INJ 4 MG/ML VIAL ONE (08:25)
[2025-09-03] MEDS ORDERED: LIDOCAINE 2% 2 ML VIAL/AMP(20MG/ML) INFIL ONE (08:25)
[2025-09-03] MEDS ORDERED: PROPOFOL IV EMULSION 10 MG/ML 20 ML VIAL IV ONE ×2 (08:25→08:41)
[2025-09-03] MEDS ORDERED: PROMETHAZINE HCL 6.25 MG in SODIUM CHLORIDE 0.9% 50 ML IV PRN (08:38)
[2025-09-03] MEDS ORDERED: ATROPINE SULFATE 0.1 MG/ML 10ML SYR IV PRN (08:38)
--- NOTE | 2025-09-03 08:38 | Anesthesiology Consultation ---
Date of Service September 03, 2025 Assessment & Plan Chart Review Chart Review: Acceptable Risk for Surgery and Patient NOT seen in Pre Admission Testing Consults Requested none ASA ASA2 Proposed Anesthesia Anesthesia Type: MAC Risk / Benefits Reviewed With: PT / POA / Parent / Guardian, Accepts Plan and Informed Consent Obtained History Surgery Operation Date: 09/03/25 09:00 Proposed Procedures p Cystoscopy Retrograde, Left Ureteral Stent Insertion - Mahesh Hidalgo MD Height/Weight Height: 5 ft 10 in Weight: 90.9 kg Allergies Allergy/AdvReac Type Severity Reaction Status Date / Time bee venom protein (honey bee) Allergy Unknown "WENT Verified 06/13/25 09:50 BLIND TEMPORARILY" No Known Drug Allergies Allergy Verified 06/13/25 09:50 seasonal allergies Allergy Uncoded 06/13/25 09:50 Medications Home Medications Medication Instructions Recorded Confirmed Last Taken sildenafil 100 mg tablet 100 mg PO UD PRN sexual activity 10/30/20 09/03/25 Unknown lisinopril 40 mg tablet 40 mg PO HS #90 tabs 03/24/25 09/03/25 Unknown baclofen 10 mg tablet 10 mg PO TID PRN muscle spasm #30 06/09/25 06/13/25 Unknown tabs atorvastatin 20 mg tablet 20 mg PO HS #90 tabs 07/06/25 09/03/25 Unknown omeprazole 40 mg capsule,delayed 40 mg PO QAM #90 caps 07/06/25 09/03/25 Unknown release Active Medications Generic Name Dose Route Start Last Admin Trade Name Freq PRN Reason Stop Dose Admin Lactated Ringer's 1,000 mls @ 100 mls/hr 09/03/25 02:52 09/03/25 04:28 Lr IV 09/06/25 02:51 100 mls/hr .Q10H KALYANI Administration Morphine Sulfate 2 mg 09/03/25 02:25 09/03/25 02:39 Morphine Sulfate 2 Mg/Ml Carp IV 09/17/25 02:24 2 mg Q3H PRN Administration Severe Pain (Scale 7, 8, 9,10) Past Medical History Medical History Elevated PSA Skin cancer Tinnitus, bilateral Sensorineural hearing loss of combined types, bilateral Cataract Barretts esophagus HX "pre-bryant's" - LAST YR CHECKED AND "NO EVIDENCE OF" Mitral valve prolapse Exercise / Class Metabolic Activity II 4-5 Yardwork/Stairs/Walk up hill Past Family History Family History Father Prostate cancer Myocardial infarction Mother Crohn's disease Other No family history of adverse response to anesthesia Denies family history of Ovarian cancer Breast cancer Colorectal cancer Past Surgical History Surgical History Hx of resection of meningioma (~2017) Followed by Dr. Brennan MOSCOSO, [place]olai History of left cataract surgery History of cataract surgery RT History of eye surgery RIGHT, RETINA 2019 History of endoscopy MULTIPLE History of craniotomy 2018 to remove benign mengioma. follows with Dr Amin ([facility]) History of colonoscopy 05/25 repeat 5 yrs History of esophagogastroduodenoscopy (EGD) 04/2020 Past Anesthesia History No Hx of Anesthesia Complications and No Family Hx of Anesthesia Complications History of PONV No Hx of PONV and No Hx of Motion Sickness Social History Smoking Status: Former smoker tobacco type: cigarettes and smokeless tobacco Smoking cigarettes per day: smoked in 20s Do You Dip or Chew Tobacco: No Hx Alcohol Use: Yes Alcohol type: wine and hard liquor alcohol intake frequency: a few times a week Hx Substance Use: No substance use type: does not use Physical Exam Vital Signs Last Vital Signs Temp 36.9 C 09/03/25 07:18 Pulse 69 09/03/25 07:18 Resp 16 09/03/25 07:18 BP 136/73 09/03/25 07:18 Pulse Ox 95 09/03/25 07:18 O2 Del Method Room Air 09/03/25 07:18 ENMT Mouth: no dentition abnormality Thyromental Distance: > or= 3.5 Finger Breadths Mallampati Class: II Neck normal visual inspection Respiratory normal respiratory effort Auscultation: lungs clear to auscultation bilaterally Cardiovascular Rate/Rhythm: regular rate and regular rhythm Psychiatric Orientation: alert Testing Laboratory Results 09/03/25 06:09 09/03/25 06:09 Urine Color Dark Yellow 09/02/25 20:52 Urine Appearance Clear (Clear) 09/02/25 20:52 Urine pH 5.0 (4.5-7.5) 09/02/25 20:52 Ur Specific [place] 1.034 (1.000-1.030) H 09/02/25 20:52 Urine Protein 1+ (Negative) H 09/02/25 20:52 Urine Glucose (UA) Negative (Negative) 09/02/25 20:52 Urine Ketones Trace (Negative) H 09/02/25 20:52 Urine Nitrite Negative (Negative) 09/02/25 20:52 Ur Leukocyte Esterase Negative (Negative) 09/02/25 20:52 Urine WBC (Auto) 6-10 /hpf (0-5) H 09/02/25 20:52 Urine RBC (Auto) >20 /hpf (0-2) H 09/02/25 20:52 U Hyaline Cast (Auto) 11-20 /lpf (0-2) H 09/02/25 20:52 U Epithel Cells (Auto) 0-2 /hpf (0-2) 09/02/25 20:52 Urine Bacteria (Auto) None Seen (None Seen) 09/02/25 20:52
[2025-09-03] MEDS: DIATRIZOATE MEGLUMINE 30% 100ML VIAL INSTIL ONE (09:12)
--- NOTE | 2025-09-03 09:29 | Operative Report ---
PG Post Operative Report Pre & Post Diagnosis Operation Date: 09/03/25 09:00 Pre-Op Diagnosis: Acute Kidney Injury, Left Calculus Post-Op Diagnosis: Acute Kidney Injury, Left Calculus I identified the patient and participated in the time-out.: Yes Procedure Operation Date: 09/03/25 09:00 Actual Procedures p Cystoscopy; Left Retrograde pyelogram with radiographic interpretation, Left Ureteroscopy; Basket Extraction of Stone, Laser Lithotripsy; Left Ureteral Stent Insertion(Left) - Mahesh Hidalgo MD Surgeon Mahesh Hidalgo MD Handle Rounder Operator None Estimated Blood Loss 0 Findings See Below Stone at UVJ, lasered into smaller pieces and basketed out. Retrograde showed no extravasation. Stent in appropriate position. Specimens Left ureteral calculus Drains 6 [place] by 26 cm left ureteral stent Anesthesia Type MAC Complications none Indications 70-year-old male with a 6 mm distal obstructing left ureteral calculus and ZOILA Description of Procedure After informed consent was obtained, the patient was transported to the operative suite. MAC anesthesia was induced. They were placed in dorsal lithotomy position and prepped and draped in sterile fashion. They received preoperative Ancef. An appropriate surgical timeout was performed. Rigid scope was inserted per urethra to the bladder. The stone was encountered at the left UVJ completely obstructing the lumen. Using a grasper I tried to remove this but was unsuccessful so I opted to remove the cystoscope and inserted a semirigid ureteroscope. I lasered the aspect of the stone carefully with a 200 m thulium laser fiber and then once this was partially removed, I was able to advance a sensor wire alongside the stone and confirmed this in the kidney. Scope was backed out over the wire and reintroduced into the distal ureter. The stone was further fragmented using the laser. A 0 tip Nitinol basket was inserted and the fragments were removed and dropped in the bladder. I advanced the scope up to the mid ureter and no other stones were seen. A retrograde pyelogram was shot which showed no extravasation. Semirigid ureteroscope was removed. I backloaded the cystoscope over the wire and deployed a 6 [place] by 26 cm left ureteral stent with a good proximal coil in the kidney confirmed fluoroscopically and a good distal coil in the bladder confirmed under direct visualization. Bladder was emptied and stone fragments were removed. This concluded the end of the case. All counts correct at the end of the case. I was present scrubbed and actively participated for the entirety of the procedure. I attest to the content of the Intraoperative Record and any orders documented therein. Any exceptions are noted below.
--- NOTE | 2025-09-03 11:29 | Anesthesiology Progress Note ---
Date of Service September 03, 2025 Anesthesia Post Procedure Vital Signs Vital Signs: Temp Pulse Pulse Pulse Resp BP BP 09/03/25 11:10 36.9 C 64 14 127/78 09/03/25 10:37 36.9 C 62 16 126/72 09/03/25 10:20 36.6 C 62 12 128/68 09/03/25 10:10 61 14 124/72 09/03/25 10:00 59 L 18 118/68 09/03/25 10:00 58 L 14 124/73 09/03/25 09:50 61 16 118/68 09/03/25 09:40 66 12 112/66 09/03/25 09:35 36.1 C L 69 16 97/67 L 09/03/25 07:18 36.9 C 69 16 136/73 09/03/25 02:53 37.2 C 75 16 172/91 H 09/03/25 02:42 76 11 L 09/03/25 02:36 70 17 09/03/25 02:34 71 16 161/92 H 09/03/25 02:30 72 17 09/03/25 02:21 70 14 09/03/25 02:21 161/92 H 09/03/25 02:21 161/92 H 09/03/25 02:21 161/92 H 09/03/25 02:21 161/92 H 09/03/25 02:21 161/92 H 09/03/25 02:00 75 18 09/03/25 01:30 71 15 09/03/25 01:12 74 09/03/25 01:00 77 16 09/03/25 01:00 72 16 154/84 H 09/03/25 00:30 85 16 09/03/25 00:00 71 20 09/02/25 23:30 71 17 09/02/25 23:00 71 17 09/02/25 23:00 72 16 154/84 H 09/02/25 22:51 71 17 09/02/25 22:50 154/84 H 09/02/25 22:50 154/84 H 09/02/25 22:50 154/84 H 09/02/25 22:50 154/84 H 09/02/25 22:50 71 16 154/84 H 09/02/25 22:00 71 13 09/02/25 21:13 09/02/25 21:13 66 17 180/104 H 09/02/25 21:08 62 09/02/25 20:34 36.6 C 68 18 188/114 H Pulse Ox O2 Del Method O2 Flow Rate 09/03/25 11:10 94 Room Air 09/03/25 10:37 95 Room Air 09/03/25 10:20 94 Room Air 09/03/25 10:10 95 Room Air 09/03/25 10:00 99 Oxymask 4 09/03/25 10:00 99 Oxymask 09/03/25 09:50 98 Oxymask 09/03/25 09:40 98 Oxymask 09/03/25 09:35 97 Oxymask 09/03/25 07:18 95 Room Air 09/03/25 02:53 93 Room Air 09/03/25 02:42 96 09/03/25 02:36 96 09/03/25 02:34 96 Room Air 09/03/25 02:30 97 09/03/25 02:21 95 09/03/25 02:21 09/03/25 02:21 09/03/25 02:21 09/03/25 02:21 09/03/25 02:21 09/03/25 02:00 97 09/03/25 01:30 96 09/03/25 01:12 09/03/25 01:00 96 09/03/25 01:00 95 Room Air 09/03/25 00:30 97 09/03/25 00:00 91 09/02/25 23:30 95 09/02/25 23:00 97 09/02/25 23:00 96 Room Air 09/02/25 22:51 95 09/02/25 22:50 09/02/25 22:50 09/02/25 22:50 09/02/25 22:50 09/02/25 22:50 95 Room Air 09/02/25 22:00 98 Room Air 09/02/25 21:13 97 Room Air 09/02/25 21:13 97 Room Air 09/02/25 21:08 09/02/25 20:34 98 Room Air Pain Intensity Abdomen: Pain Intensity: 7 Penis: Pain Intensity: 3 Transfer of Care Handoff Completed per policy Notes Mental Status: alert / awake / arousable Patient Amnestic to Procedure: Yes Nausea / Vomiting: adequately controlled Pain: adequately controlled Airway Patency, RR, SpO2: stable & adequate BP & HR: stable & adequate Hydration State: stable & adequate Anesthetic Complications: no major complications apparent
[2025-09-03] MEDS: TAMSULOSIN HCL 0.4 MG CAP PO SCH (11:36)
[2025-09-03] MEDS: ACETAMINOPHEN 500 MG TAB PO PRN (15:27)
--- NOTE | 2025-09-03 15:55 | Hospitalist Progress Note ---
Date of Service September 03, 2025 Assessment & Plan (1) Calculus of ureterovesical junction (UVJ): Plan: * Patient seen by urology. Cystoscopy performed with the left uteroscopy and stent placement. * Will treat patient with ciprofloxacin for 7 days * Patient does have hematuria. Will check repeat labs in the morning * Continue to strain urine for fragments and for stones (2) ZOILA (acute kidney injury): Plan: * Secondary to calculus of ureterovesical junction * Stent now placed. Expect improvement in creatinine. Check repeat labs in the morning * Continue ciprofloxacin for 7 days (3) Hydronephrosis: Plan: * Secondary to above. Pain is improving. No indication for further imaging at this time (4) GERD with esophagitis: Plan: * Patient reports asymptomatic * Continue pantoprazole daily Plan Case discussed with Dr. Sepulveda Anticipate discharge home tomorrow if labs are stable Admission and Anticipated Discharge Date Admission Date: September 03, 2025 Supervising Physician Co-Signing Physician Notes The patient was not seen by me. The chart was reviewed. Case discussed with BLAZE Conde. Agree with assessment and plan Subjective Attending: Dr. Sepulveda Mr. Nelson was admitted earlier today. Patient was seen by urology and underwent cystoscopy with left uteroscopy and stent placement. Since that time, patient is having significant improvement of pain but still has significant amount of hematuria. Urine is being strained with no evidence of fragments thus far. Patient denies fever, chills, sweats, rigors. He has no increased pain with urination. He was started on tamsulosin and has good urinary output. Patient is concerned about the amount of hematuria he is having. We discussed this as typical after cystoscopy. Will check repeat labs in the morning. No other acute complaints Review of Systems 2 Review of Systems: A total of 10 systems was reviewed and is negative other than as listed in the HPI Physical Exam 2 Physical Exam: GENERAL : No acute distress EYES: No icterus, gaze conjugate NOSE: No evidence of epistaxis MOUTH: No lesions or candidiasis NECK: Supple LUNGS: CTA B/L, no wheezes, rales or rhonchi HEART: Regular, rate controlled ABDOMEN: Soft, NT, ND, BS Present EXTREMITIES: No LE edema, pedal pulses intact NEURO: A&OX3 Results & Data Results & Data Vital Signs (Past 12 Hours) Vital Signs Temp Pulse Pulse Pulse Resp BP BP 11/30/25 15:41 36.3 C L 77 18 133/76 09/03/25 14:02 37.2 C 71 16 130/72 09/03/25 11:10 36.9 C 64 14 127/78 09/03/25 10:37 36.9 C 62 16 126/72 09/03/25 10:20 36.6 C 62 12 128/68 09/03/25 10:10 61 14 124/72 09/03/25 10:00 59 L 18 118/68 09/03/25 10:00 58 L 14 124/73 09/03/25 09:50 61 16 118/68 09/03/25 09:40 66 12 112/66 09/03/25 09:35 36.1 C L 69 16 97/67 L 09/03/25 07:18 36.9 C 69 16 136/73 Pulse Ox O2 Del Method O2 Flow Rate 09/03/25 15:41 93 Room Air 09/03/25 14:02 94 Room Air 09/03/25 11:10 94 Room Air 09/03/25 10:37 95 Room Air 09/03/25 10:20 94 Room Air 09/03/25 10:10 95 Room Air 09/03/25 10:00 99 Oxymask 4 09/03/25 10:00 99 Oxymask 09/03/25 09:50 98 Oxymask 09/03/25 09:40 98 Oxymask 09/03/25 09:35 97 Oxymask 09/03/25 07:18 95 Room Air Laboratory Results 09/03/25 06:09 09/03/25 06:09 Diagnostic Findings Abdomen/Pelvis CT 09/02/25 21:05 Exam(s): CT ABDOMEN + PELVIS With Contrast IV Amt: 90 ml optiray 320 EXAM: CT Abdomen and Pelvis With Intravenous Contrast CLINICAL HISTORY: Reason for exam: abd pain. TECHNIQUE: Axial computed tomography images of the abdomen and pelvis with intravenous contrast. CTDI is 25.2 mGy and DLP is 1229.58 mGy-cm. Automated exposure control was utilized for the study. A dose lowering technique was utilized adhering to the principles of ALARA. CONTRAST: Patient received 90 ml optiray 320 of IV contrast COMPARISON: No relevant prior studies available. FINDINGS: Lung bases: Unremarkable. No mass. No consolidation. ABDOMEN: Liver: Unremarkable. No mass. Gallbladder and bile ducts: Unremarkable. No calcified stones. No ductal dilation. Pancreas: Unremarkable. No mass. No ductal dilation. Spleen: Unremarkable. No splenomegaly. Adrenals: Unremarkable. No mass. Kidneys and ureters: [id number] left-sided hydronephrosis and hydroureter down to a 6 mm calculus at the left ureterovesicular junction. Delayed nephrogram involving the left kidney. Stomach and bowel: See below. PELVIS: Appendix: Bowel loops are nondilated. The appendix is normal. There is diverticulosis of the left and sigmoid colon without evidence of acute diverticulitis. Bladder: Unremarkable. No mass. Reproductive: Unremarkable as visualized. ABDOMEN and PELVIS: Intraperitoneal space: Unremarkable. No free air. No significant fluid collection. Bones/joints: Mild degenerative changes in the spine. No acute fracture or subluxation is seen. Soft tissues: Unremarkable. Vasculature: Unremarkable. No abdominal aortic aneurysm. Lymph nodes: Unremarkable. No enlarged lymph nodes. IMPRESSION: 1. Bowel loops are nondilated. The appendix is normal. There is diverticulosis of the left and sigmoid colon without evidence of acute diverticulitis. 2. [id number] left-sided hydronephrosis and hydroureter down to a 6 mm calculus at the left ureterovesicular junction. Electronically signed by: Isaias Middleton MD 09/03/25 00:29 AM PG Care Time/CCT Total # of Minutes Spent Total Time Spent with Patient: Total time spent is greater than 50% in coordination of care (as documented) at patient's floor/unit and/or counseling patient: Coding Level of Care Code 53016 SUB INP/OBS CARE 10/29MIN Diagnoses Calculus of ureterovesical junction (UVJ) N20.1 ZOILA (acute kidney injury) N17.9 Hydronephrosis N13.30 Hydronephrosis type: unspecified Gastroesophageal reflux disease with esophagitis without hemorrhage K21.00 Esophagitis bleeding: without hemorrhage Time Spent (min) 20 (3) Hydronephrosis Hydronephrosis type: unspecified Qualified Code(s): N13.30 - Unspecified hydronephrosis (4) GERD with esophagitis Esophagitis bleeding: without hemorrhage Qualified Code(s): K21.00 - Gastro- esophageal reflux disease with esophagitis, without bleeding
[2025-09-03] MEDS: ATORVASTATIN 20 MG TAB PO SCH (20:20)
[2025-09-03] MEDS: CIPROFLOXACIN 500 MG TAB PO SCH (20:22)
[2025-09-04 07:35] LABS: Hematocrit (blood only) 40.2 % (42.0-52.0); Hemoglobin 13.7 g/dL (14.0-18.0); Immature Granulocytes # (auto) 0.03 K/uL (0.01-0.20); Immature Granulocytes % (auto) 0.3 %; Mean Corpuscular Hemoglobin 30.5 pg (25.0-34.0); Mean Corpuscular Volume 89.5 fL (80.0-100.0); Platelet Count 176 K/uL (130-400); RDW Standard Deviation 38.9 fL (36.4-46.3); Red Blood Count 4.49 M/uL (4.70-6.10); White Blood Count 10.06 K/ul (4.8-10.8)
[2025-09-04 07:40] VITALS: BP 129/70; PULSE 72; RESP 16; TEMP 97.7; O2SAT 97
[2025-09-04 07:49] LABS: Anion Gap 5.0 (3-11); Blood Urea Nitrogen 24.0 mg/dl (6-23); Calcium 8.4 mg/dl (8.6-10.3); Carbon Dioxide 27.0 mmol/L (21-32); Chloride 106.0 mmol/L (98-107); Creatinine Clr Calc Pharmacy 56.1 ml/min; Glucose 117.0 mg/dl (70-99(Fasting)); Potassium 4.2 mmol/L (3.5-5.1); Sodium 138.0 mmol/L (136-145)
--- NOTE | 2025-09-04 08:22 | Fluoroscopy Report ---
INTRAOPERATIVE FLUOROSCOPIC IMAGES: CLINICAL HISTORY: Left retrograde exam. COMPARISON: CT of the abdomen and pelvis September 02, 2025. Fluoroscopy time: 8 seconds. Number of fluoroscopic images: 2 Ka,r: 2.07 mGy. FINDINGS: Fluoroscopy was provided during left retrograde pyelogram, lithotripsy and left ureteral st ent insertion. Proximal aspect of the left ureteral stent is within the left renal pelvis. IMPRESSION: Fluoroscopy provided during left retrograde exam, lithotripsy and left ureteral stent ins ertion. Electronically signed by: Roberto Tesfaye M.D. 09/04/2025 8:20 AM
--- NOTE | 2025-09-04 11:49 | Discharge Summary ---
Discharge Summary Date of Service September 04, 2025 Principal Dx & Hospital Course #1 = Principal Diagnosis (1) ZOILA (acute kidney injury): (2) Hydronephrosis: (3) Calculus of ureterovesical junction (UVJ): Plan #ZOILA/Hydronephrosis/Calculus of UVJ 70-year-old male PMHx prostate cancer, benign neoplasm of cerebral meninges (2018, atypical meningioma), HTN, HLD, prediabetes, MVP, GERD and Ortega's esophagus presenting for abdominal pain radiating to the back starting 4 days [employer]. Evaluation reveals mild leukocytosis 10.94, but with UA without bacteria. Creatinine elevated at 1.66. CTAP does reveal left-sided hydronephrosis with hydroureter and presence of a 6 mm calculus. Admission for ZOILA and hydronephrosis secondary to ureteral calculus. Urology consulted - s/p stent placement with basket extraction of stone on 09/[address] Hidalgo. ZOILA has resolved. OP follow up for stent removal. Cipro was initiated during inpatient stay (QTc okay) and will continue to complete course given hydronephrosis. Okay to resume lisnopril. Discharge home with flomax, prn oxybutyin and prn pyridium #Prostate CA- Dx 08/21/2025, following with active surveillance and follows with Urology, most recent visit 08/29/2025 - continue to monitor in outpatient setting #HTN- okay to resume lisinopril #GERD- Omeprazole - continue #HLD- Atorvastatin - continue Dispo: discharge to home today with urology follow up Admission HPI Per Admitting Provider 70-year-old male PMHx prostate cancer, benign neoplasm of cerebral meninges (2018, atypical meningioma), HTN, HLD, prediabetes, MVP, GERD and Ortega's esophagus presenting for abdominal pain radiating to the back starting 4 days [employer]. Patient reports that on Thursday he had a "episode" of the pain that he had to lay down to alleviate. He states after laying down he felt better and was able to tolerate his dinner. Ever since that time, he has had on and off left-sided flank pain that is in his lower left abdomen and radiates to his back. Occasionally getting "twinges" in his groin region, but these have been ongoing since his prostate biopsy 2 weeks prior. He describes the pain as a steady twinge with occasional worsening at times. At its worst, it was a 7-8 out of 10 on the pain scale, currently 4 out of 10 the pain scale. He states that he did variance feeling more cold the day of arrival, but no fevers. He was having nausea and dry heaving once arriving to the ED, none at present. No LUTS. Had this happen once before in the summer where he had a low back pain that resolved on its own, they said it was similar in nature but did not have an evaluation. Denies chest pain, SOB, palpitations, diarrhea/constipation, URI symptoms at present, numbness/tingling, weakness, syncope or falls. ED evaluation revealed CBC with leukocytosis 10.94, stable H&H; CMP BUN 26, creatinine 1.66, glucose 116; lipase WNL; UA with blood/WBC, no bacteria; CTAP bowel loops nondilated, no diverticulitis, with mild to moderate L sided hydronephrosis and hydroureter down to 6 mm calculus in left ureterovesicular junction.; Provided with 1L NSS, Zofran 4 mg IV, ketorolac 10 mg IV in ED. Please see Dr. Davis's attestation for adjustments/additions to treatment plan. Discharge Exam General: NAD, VS as above Resp: normal respiratory effort, lungs clear to auscultation CV: RRR, no murmur, Abd: normal bowel sounds, non tender, soft Extremities: Moves all extremities, Neuro: A&O x3, Discharge Plan Discharge Items Patient Disposition: Home - Self-Care Reason For Visit: ZOILA, HYDRONEPH, CALCULUS Discharge Diagnosis: Kidney stone Condition on Discharge: Good Activity: Resume your previous activity Weightbearing: Full weightbearing Non-emergency contact: Primary Care Provider Call non-emergency contact if: you have any medication questions, your symptoms worsen, your pain is worsening and your temperature is above 101 Follow-up/Referrals: Tye Isbell DO [Primary Care Provider] - 09/14/25 11:30 am (arrive approx 15 mins early) Mahesh Hidalgo MD [Physician] - (appointment thursday for stent removal ) Diet: Heart Healthy Addtl Attending Provider Instructions: Mr. Omar Toro were hospitalized after having abdominal pain and flank pain found to be from kidney stones. You were seen by urology and taken to the OR to have a stent placed on 09/[address] Hidalgo. Your urine was also concerning for infection so you have been started on antibiotics, these will be continued at discharge. You will need to follow up with urology for stent removal. Medication Changes/Recommendations: * Continue flomax daily while stent in place - this is to help with easier passage of urine * Pyridium as needed for pain with urination - this can cause your urine/feces to be discolored/orange * oxybutynin - as needed for bladder spams or ureteral spams for pain * Cipro. Please take the entire course, even if you feel well. * Pain control - tylenol as needed over the counter It is normal to still have discomfort in the flank area while the stent is in place, this pain may be worse with movement. Blood tinged urine can also be common. If you are having persistent dark bloody urine or thick bloody urine for >8 hours please contact your urologist. It is important that you are staying hydrated while the stent is in place. The urology office should be contacting you to schedule and appointment. Please contact the urologist if you have any uncontrolled pain, fevers > 100F, or inability to urinate. Pending Studies at Discharge: No Stand-Alone Forms: My SIGKAT, Smoking Cessation Medications and DC Order Prescriptions: New ciprofloxacin HCl 500 mg Tablet 500 mg PO BID 6 Days Qty: 12 0RF tamsulosin 0.4 mg Capsule 0.4 mg PO QAM 14 Days Qty: 14 0RF phenazopyridine [Pyridium] 100 mg tablet 100 mg PO Q8H PRN (Reason: dysuria ) Qty: 6 0RF oxybutynin chloride 5 mg tablet 5 mg PO BID PRN (Reason: bladder spasms) Qty: 10 0RF Continued baclofen 10 mg tablet 10 mg PO TID PRN (Reason: muscle spasm) Qty: 30 0RF atorvastatin 20 mg tablet 20 mg PO HS Qty: 90 3RF omeprazole 40 mg capsule,delayed release(DR/EC) 40 mg PO QAM Qty: 90 1RF lisinopril 40 mg tablet 40 mg PO HS Qty: 90 3RF sildenafil 100 mg tablet 100 mg PO UD PRN (Reason: sexual activity) Rx Instructions: administer 30 minutes to 4 hours before activity Discharge Orders: Discharge Order (Routine); Ordered 09/04/25 Ordered By: Rinaa Hudson/Other Patient Handouts: Having a Ureteral Stent Admission Data Admit Date/Time: 09/03/25 01:56 Attending Provider: Cleopatra Wood Admit Provider: Reed Davis Primary Care Provider: Tye Isbell Other Providers: Mahesh Hidalgo; Reed Davis Other Interventions: Discharge Summary Assessment (RN) Last Done: 09/04/25 12:44 Hospital Stay Data Consultations 09/03/25 01:23 ED Decision to Admit Stat 09/03/25 06:00 Consult Urology Routine Procedures Performed Operation Date: 09/03/25 09:00 Actual Procedures p Cystoscopy; Left Retrograde, Left Ureteroscopy; Basket Extraction of Stone, Laser Lithotripsy;(Left) - MD svetlana Allen Left Ureteral Stent Insertion(Left) - Mahesh Hidalgo MD Diagnostic Imagining Performed Abdomen/Pelvis CT 09/02/25 21:05 Exam(s): CT ABDOMEN + PELVIS With Contrast IV Amt: 90 ml optiray 320 EXAM: CT Abdomen and Pelvis With Intravenous Contrast CLINICAL HISTORY: Reason for exam: abd pain. TECHNIQUE: Axial computed tomography images of the abdomen and pelvis with intravenous contrast. CTDI is 25.2 mGy and DLP is 1229.58 mGy-cm. Automated exposure control was utilized for the study. A dose lowering technique was utilized adhering to the principles of ALARA. CONTRAST: Patient received 90 ml optiray 320 of IV contrast COMPARISON: No relevant prior studies available. FINDINGS: Lung bases: Unremarkable. No mass. No consolidation. ABDOMEN: Liver: Unremarkable. No mass. Gallbladder and bile ducts: Unremarkable. No calcified stones. No ductal dilation. Pancreas: Unremarkable. No mass. No ductal dilation. Spleen: Unremarkable. No splenomegaly. Adrenals: Unremarkable. No mass. Kidneys and ureters: [id number] left-sided hydronephrosis and hydroureter down to a 6 mm calculus at the left ureterovesicular junction. Delayed nephrogram involving the left kidney. Stomach and bowel: See below. PELVIS: Appendix: Bowel loops are nondilated. The appendix is normal. There is diverticulosis of the left and sigmoid colon without evidence of acute diverticulitis. Bladder: Unremarkable. No mass. Reproductive: Unremarkable as visualized. ABDOMEN and PELVIS: Intraperitoneal space: Unremarkable. No free air. No significant fluid collection. Bones/joints: Mild degenerative changes in the spine. No acute fracture or subluxation is seen. Soft tissues: Unremarkable. Vasculature: Unremarkable. No abdominal aortic aneurysm. Lymph nodes: Unremarkable. No enlarged lymph nodes. IMPRESSION: 1. Bowel loops are nondilated. The appendix is normal. There is diverticulosis of the left and sigmoid colon without evidence of acute diverticulitis. 2. [id number] left-sided hydronephrosis and hydroureter down to a 6 mm calculus at the left ureterovesicular junction. Electronically signed by: Isaias Middleton MD 09/03/25 00:29 AM Retrograde Pyelogram 09/03/25 08:23 INTRAOPERATIVE FLUOROSCOPIC IMAGES: CLINICAL HISTORY: Left retrograde exam. COMPARISON: CT of the abdomen and pelvis September 02, 2025. Fluoroscopy time: 8 seconds. Number of fluoroscopic images: 2 Ka,r: 2.07 mGy. FINDINGS: Fluoroscopy was provided during left retrograde pyelogram, lithotripsy and left ureteral stent insertion. Proximal aspect of the left ureteral stent is within the left renal pelvis. IMPRESSION: Fluoroscopy provided during left retrograde exam, lithotripsy and left ureteral stent insertion. Electronically signed by: Roberto Tesfaye M.D. 09/04/2025 8:20 AM Pending Results Patient Have Any Pending Studies at Discharge: No Discharge Instructions Given to Patient (Per Discharging Provider) Mr. Omar Toro were hospitalized after having abdominal pain and flank pain found to be from kidney stones. You were seen by urology and taken to the OR to have a stent placed on 09/[address] Hidalgo. Your urine was also concerning for infection so you have been started on antibiotics, these will be continued at discharge. You will need to follow up with urology for stent removal. Medication Changes/Recommendations: * Continue flomax daily while stent in place - this is to help with easier passage of urine * Pyridium as needed for pain with urination - this can cause your urine/feces to be discolored/orange * oxybutynin - as needed for bladder spams or ureteral spams for pain * Cipro. Please take the entire course, even if you feel well. * Pain control - tylenol as needed over the counter It is normal to still have discomfort in the flank area while the stent is in place, this pain may be worse with movement. Blood tinged urine can also be common. If you are having persistent dark bloody urine or thick bloody urine for >8 hours please contact your urologist. It is important that you are staying hydrated while the stent is in place. The urology office should be contacting you to schedule and appointment. Please contact the urologist if you have any uncontrolled pain, fevers > 100F, or inability to urinate. Supervising Physician Co-Signing Physician Notes BLAZE Supervision Note: I did not personally see or examine the patient today, but I verified all [place] points of BLAZE Lovell's assessment and plan with the following exceptions/additions: None Total Time Total Time Spent Total Time Spent (In Minutes): Time spent day of discharge 35 minutes including direct patient care, medication reconciliation, documentation, review of labs and images, and coordination of care. Coding Level of Care Code 09219 INP/OBS DISCH >30 MIN Diagnoses ZOILA (acute kidney injury) N17.9 Hydronephrosis N13.30 Hydronephrosis type: unspecified Calculus of ureterovesical junction (UVJ) N20.1
--- NOTE | 2025-09-04 15:06 | Communication Note ---
Date of Service: September 04, 2025 By CMS guidelines, a determination that the admission or continued stay is not medically necessary has been made by a member of the UR committee and adria garvin for this hospital stay, therefore a Code 44 will be completed and the Inpatient admission will be changed to outpatient.
--- NOTE | 2025-09-04 15:34 | Electrocardiogram Report ---
Test Reason : Blood Pressure : */* mmHG Vent. Rate : 63 BPM Atrial Rate : 63 BPM P-R Int : 170 ms QRS Dur : 84 ms QT Int : 386 ms P-R-T Axes : 47 10 13 degrees QTcB Int : 395 ms Normal sinus rhythm Low voltage QRS Borderline ECG When compared with ECG of 17-Sep-2018 17:09, No significant change was found Confirmed by Barrett Vincent ([id number]) on 09/04/2025 3:33:46 PM Referred By: REFERRED SELF Confirmed By: Barrett Vincent
== END 2025-09-04 13:17 | disposition home or self-care (01) ==
LOC: ED 20:32 → 3W 09-03 01:56 → SUATTDRO 09-03 01:56 → INTOOBSV 09-03 01:56 → 3W 09-03 02:34